=== PATIENT | male | born 1975 | race Caucasian/White ===

== ENCOUNTER 2017-09-04 12:42 | Emergency (ER) | payer OTHER ==
[~2017-09-04] VITALS: Ht 188 cm; Wt 119.3 kg
[~2017-09-04 12:42] MED LIST: AMLODIPINE BESY10 MG PO; APIDRA SUBQ; ASPIRIN325 PO; BACTRIM DS TAB1 EACH PO; GABAPENTIN100 MG PO; GLUCOPHAGE1000 MG PO; HYDRALAZINE 2525 M1 PO; HYDROCHLOROTHIA25 M1 PO; HYDROCODON-ACE1 EAC7 PO; HYDROXYZINE PAM25 M1 PO; KEFLEX500 MG PO; LANTUS SUBQ; LISINOPRIL40 MG PO; LOPERAMIDE 2 MG2 M1 PO; NOVOLOG100 UNIT/1 SQ; PERCOCET 5-3251 EACH PO; PRAVACHOL 20 MG20 M1 PO; PRILOSEC40 MG PO; RANITIDINE 150150 M1 PO; TOPROL XL100 MG PO; VANCOMYCIN1 GM/2502 IV; VANCOMYCIN1.5 GM/250 IV; WELLBUTRIN 75 M75 M1 PO
[2017-09-04 13:23] LABS: ABSOLUTE BASOPHILS 0.1 thou/uL (0.0-0.2); ABSOLUTE LYMPHOCYTES 1.7 thou/uL (0.8-5.3); ABSOLUTE MONOCYTES 0.4 thou/uL (0.0-1.2); ABSOLUTE NEUTROPHILS 6.3 thou/uL (1.6-8.1); BASOPHILS 0.7 %; EOSINOPHILS 0.6 %; HEMATOCRIT 40.5 % (42.0-52.0); HEMOGLOBIN 13.6 gm/dL (14.0-18.0); LYMPHOCYTES 19.9 %; MCH 27.8 pg (26.0-34.0); MCHC 33.6 g/dL (28.0-37.0); MCV 82.8 fL (80.0-100.0); MONOCYTES 4.3 %; MPV 7.2 fl. (7.2-11.1); NUCLEATED RBCS 0 /100WBC; PLATELET COUNT* 295 thou/uL (150-400); POLYS 74.5 %; RBC 4.89 mil/uL (4.50-6.00); RDW-CV 13.3 % (10.5-14.5); WBC 8.5 thou/uL (4.0-11.0)
[2017-09-04 13:32] LABS: CALCIUM 9.1 mg/dL (8.5-10.1); POTASSIUM 3.7 mmol/L (3.5-5.1)
[2017-09-04 13:39] LABS: ALBUMIN 2.5 g/dL (3.4-5.0); TOTAL BILIRUBIN 0.3 mg/dL (<0.1-1.0); TOTAL PROTEIN 7.2 g/dL (6.4-8.2)
[2017-09-04 14:00] LABS: URINE BILIRUBIN NEGATIVE (Negative); URINE BLOOD 1+ (Negative); URINE CLARITY CLEAR; URINE COLOR YELLOW; URINE GLUCOSE-RANDOM 3+ (Negative); URINE KETONES 2+ (Negative); URINE LEUKOCYTES-REFLEX NEGATIVE (Negative); URINE NITRITE-REFLEX NEGATIVE (Negative); URINE PROTEIN 2+ (Negative); URINE UROBILINOGEN 0.2 E.U./dl (0.2-1.0)
[2017-09-04 14:06] LABS: BACTERIA-REFLEX 1-9 Few /HPF (None Seen); CASTS None Seen /LPF (None Seen); MUCUS None Seen strn/LPF (None Seen); SQUAMOUS 4-10 Moderate /LPF (0-3); URINE WBC-REFLEX 0-5 Rare /HPF (0-5)
[2017-09-04 14:07] LABS: CRYSTALS None Seen /LPF (None Seen)
[2017-09-04 14:10] LABS: BE 0.6 mmol/L (-2 to +3); HCO3 25.3 mmol/L (22.0-26.0); PCO2 40.7 mmHg (35.0-45.0); PO2 94.8 mmHg (75.0-100.0); pH 7.411 (7.340-7.450)
[2017-09-04] MEDS ORDERED: GLYBURIDE 2.52.5 MG PO (14:32)
[2017-09-04] MEDS ORDERED: METFORMIN HCL500 MG PO (14:32)
[2017-09-04] MEDS ORDERED: ZESTORETIC 20-1 EAC3 PO (14:32)
[2017-09-04] MEDS ORDERED: KEFLEX500 M1 PO (14:59)
[2017-09-04 15:19] VITALS: BP 153/91
== END 2017-09-04 15:19 | disposition home or self-care (01) ==
LOC: M.ERS 12:42
PROVIDERS: Physician Assistant
DX: L08.89 Other specified local infections of the skin and subcutaneous tissue (principal); E11.65 Type 2 diabetes mellitus with hyperglycemia; I10 Essential (primary) hypertension; E11.42 Type 2 diabetes mellitus with diabetic polyneuropathy; E78.5 Hyperlipidemia, unspecified; K21.9 Gastro-esophageal reflux disease without esophagitis; F32.9 Major depressive disorder, single episode, unspecified; F41.9 Anxiety disorder, unspecified; Z98.890 Other specified postprocedural states; Z91.14 Patient's other noncompliance with medication regimen; Z88.8 Allergy status to other drugs, medicaments and biological substances

== ENCOUNTER → 2018-12-18 | Emergency (ER) | payer MEDICAID ==
[~2018-12-18] VITALS: Ht 188 cm; Wt 92.1 kg
[~2018-12-18] MED LIST changes: +DIPHENHIST50 MG PO; +GLYBURIDE 2.52.5 MG PO; +KEFLEX500 M1 PO; +METFORMIN HCL500 MG PO; +ZESTORETIC 20-1 EAC3 PO
[2018-12-18 20:07] LABS: ABSOLUTE EOSINOPHILS 0.1 thou/uL (0.0-0.7); ABSOLUTE LYMPHOCYTES 2.2 thou/uL (0.8-5.3); ABSOLUTE MONOCYTES 0.8 thou/uL (0.0-1.2); ABSOLUTE NEUTROPHILS 10.6 thou/uL (1.6-8.1); BASOPHILS 0.3 %; EOSINOPHILS 0.6 %; HEMATOCRIT 43.2 % (42.0-52.0); HEMOGLOBIN 14.6 gm/dL (14.0-18.0); LYMPHOCYTES 16.3 %; MCH 26.7 pg (26.0-34.0); MCHC 33.8 g/dL (28.0-37.0); MCV 79.1 fL (80.0-100.0); MONOCYTES 6.1 %; MPV 7.3 fl. (7.2-11.1); NUCLEATED RBCS 0 /100WBC; PLATELET COUNT* 438 thou/uL (150-400); POLYS 76.7 %; RBC 5.47 mil/uL (4.50-6.00); RDW-CV 13.6 % (10.5-14.5); WBC 13.8 thou/uL (4.0-11.0)
[2018-12-18 20:21] LABS: ALBUMIN 3.6 g/dL (3.4-5.0); ALKALINE PHOSPHATASE 113 U/L (46-116); ANION GAP 12 mmol/L (7-16); BUN 22 mg/dL (7-18); CALCIUM 9.1 mg/dL (8.5-10.1); CHLORIDE 94 mmol/L (98-107); CO2 28 mmol/L (21-32); CREATININE 1.6 mg/dL (0.6-1.3); GLUCOSE 133 mg/dL (70-99); MAGNESIUM 1.9 mg/dL (1.8-2.4); POTASSIUM 3.2 mmol/L (3.5-5.1); SGOT 17 U/L (15-37); SGPT 16 U/L (30-65); SODIUM 134 mmol/L (136-145); TOTAL BILIRUBIN 0.3 mg/dL (<0.1-1.0); TOTAL PROTEIN 8.2 g/dL (6.4-8.2); TROPONIN-I LEVEL <0.06 ng/mL (<0.06)
[2018-12-18 22:00] VITALS: BP 159/100
== END ==
LOC: M.ERS 19:03
PROVIDERS: Personal Emergency Response Attendant
DX: E10.649 Type 1 diabetes mellitus with hypoglycemia without coma (principal); G56.02 Carpal tunnel syndrome, left upper limb; F17.210 Nicotine dependence, cigarettes, uncomplicated; I10 Essential (primary) hypertension; E78.5 Hyperlipidemia, unspecified; K21.9 Gastro-esophageal reflux disease without esophagitis; F32.9 Major depressive disorder, single episode, unspecified; G62.9 Polyneuropathy, unspecified; F41.9 Anxiety disorder, unspecified; G47.00 Insomnia, unspecified; K58.9 Irritable bowel syndrome, unspecified; Z88.8 Allergy status to other drugs, medicaments and biological substances